=== PATIENT | male | born 1965 | race Caucasian/White ===

== ENCOUNTER 2021-06-06 09:15 | Emergency (ER) | payer OTHER, SELFPAY ==
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
[2021-06-06 09:23] VITALS: BP 151/96; PULSE 93; RESP 18; TEMP 36.7; O2SAT 100; BMI 21.5
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
== END 2021-06-06 10:50 | disposition home or self-care (01) ==
PROVIDERS: Emergency Provider Emergency Medicine
DX: S42.032A Displaced fracture of lateral end of left clavicle, initial encounter for closed fracture (principal); I10 Essential (primary) hypertension; V00.831A Fall from motorized mobility scooter, initial encounter; Y93.I9 Activity, other involving external motion; Y92.9 Unspecified place or not applicable; Y99.9 Unspecified external cause status
CPT/HCPCS: 71101; 73030; 99283; 99284

== ENCOUNTER 2023-09-30 09:57 | Outpatient (REF) | payer OTHER, SELFPAY ==
[2023-09-30 12:00] LABS: Alanine Aminotransferase 15 U/L (0-40); Albumin Level 4.5 g/dL (3.5-5.0); Alkaline Phosphatase 99 U/L (39-117); Aspartate Amino Transferase 21 U/L (5-37); Bilirubin Direct 0.3 mg/dL (0.0-0.5); Bilirubin Total 0.5 mg/dL (0.0-1.0); Total Protein 7.7 g/dL (6.5-8.0)
[2023-09-30 12:06] LABS: HIV AB/AG Nonreactive (Nonreactive); HIV Num 1 0.05 S/CO (0.00-0.99); ~HepC Num1 8.98 S/CO (0.00-0.79); ~Hepatitis C Antibody Reactive (Nonreactive)
[2023-10-02 14:53] LABS: HCV Log PCR <1.18 NOT DETECTED Log IU/mL (NOT DETECTED); HepC Viral Load <15 NOT DETECTED IU/mL (NOT DETECTED)
== END 2023-09-30 09:58 | disposition home or self-care (01) ==
LOC: HO.HHCL 09:57
PROVIDERS: Visit Provider Emergency Medicine
DX: F11.20 Opioid dependence, uncomplicated (principal)
CPT/HCPCS: 36415; 80076; 86803; 87389; 87522